=== PATIENT | female | born 1995 | race Asian ===

== ENCOUNTER 2019-07-11 18:45 | Emergency (ER) | payer OTHER ==
[~2019-07-11] VITALS: Ht 152.4 cm; Wt 63.5 kg
[2019-07-11 19:22] LABS: URINE BILIRUBIN NEGATIVE (Negative); URINE BLOOD NEGATIVE (Negative); URINE CLARITY CLEAR; URINE COLOR YELLOW; URINE GLUCOSE-RANDOM* NEGATIVE (Negative); URINE KETONES 1+ (Negative); URINE LEUKOCYTES-REFLEX NEGATIVE (Negative); URINE NITRITE-REFLEX NEGATIVE (Negative); URINE PROTEIN (DIPSTICK) NEGATIVE (Negative); URINE SPECIFIC GRAVITY 1.025 (1.005-1.035); URINE UROBILINOGEN 0.2 E.U./dl (0.2-1.0)
[2019-07-11] MEDS ORDERED: FLUOXETINE HCL40 MG PO (21:44)
[2019-07-11] MEDS ORDERED: BUSPIRONE HCL15 MG PO (21:44)
[2019-07-11 21:57] LABS: ABSOLUTE NEUTROPHILS 4.8 thou/uL (1.4-8.2); BASOPHILS 0.6 % (0.0-2.0); EOSINOPHILS 1.1 % (0.0-3.0); HEMATOCRIT 42.2 % (37.0-47.0); HEMOGLOBIN 14.6 gm/dL (12.0-15.0); LYMPHOCYTES 18.9 % (24.0-44.0); MCHC 34.7 g/dL (28.0-37.0); MCV 86.6 fL (80.0-100.0); MONOCYTES 8.1 % (1.0-8.0); PLATELET COUNT 339 thou/uL (150-400); POLYS 71.3 % (36.0-66.0); RBC 4.88 mil/uL (4.20-5.00); RDW 13.7 % (10.5-14.5); WBC 6.7 thou/uL (4.0-11.0)
[2019-07-11 22:06] LABS: CALCIUM 9.1 mg/dL (8.5-10.1); CREATININE 0.7 mg/dL (0.6-1.0); POTASSIUM 3.4 mmol/L (3.5-5.1)
[2019-07-11 22:11] LABS: ALBUMIN 4.2 g/dL (3.4-5.0); TOTAL BILIRUBIN 0.3 mg/dL (<0.1-1.0); TOTAL PROTEIN 7.6 g/dL (6.4-8.2)
[2019-07-11] MEDS ORDERED: FLUOXETINE HCL20 M1 PO (23:14)
[2019-07-11 23:25] VITALS: BP 165/95
== END 2019-07-12 05:04 | disposition home or self-care (01) ==
LOC: ER 18:45
PROVIDERS: Emergency Medicine Emergency Medical Services
DX: K52.1 Toxic gastroenteritis and colitis (principal); T43.595A Adverse effect of other antipsychotics and neuroleptics, initial encounter; T43.225A Adverse effect of selective serotonin reuptake inhibitors, initial encounter; J45.909 Unspecified asthma, uncomplicated; F17.210 Nicotine dependence, cigarettes, uncomplicated; Z79.899 Other long term (current) drug therapy; Y92.89 Other specified places as the place of occurrence of the external cause